=== PATIENT | male | born 1995 | race Caucasian/White ===

== ENCOUNTER 2022-07-17 11:56 | Emergency (ER) | payer OTHER ==
[2022-07-17] MEDS ORDERED: IBUP80TA PO (14:08)
[2022-07-17] MEDS ORDERED: CYCL5TAB PO (14:08)
[2022-07-17 14:19] VITALS: BP 116/59
== END 2022-07-17 14:21 | disposition home or self-care (01) ==
LOC: M ED 11:56
DX: M54.50 Low back pain, unspecified (principal); W19.XXXA Unspecified fall, initial encounter

== ENCOUNTER → 2023-09-08 | Outpatient (CLI) | payer OTHER ==
[~2023-09-08] MED LIST: CYCL5TAB PO; IBUP80TA PO
== END ==
LOC: M RAD 10:07
PROVIDERS: ATTEND Pain Medicine Interventional Pain Medicine
DX: M54.12 Radiculopathy, cervical region (principal)

== ENCOUNTER → 2023-09-13 | Outpatient (CLI) | payer OTHER ==
[~2023-09-13] MED LIST changes: +ISOVUE-300 61% 100ML VIAL As Ordered ONE; +LIDOCAINE 1% MDV 20ML VIAL As Ordered ONE; +PROHANCE 279.3MG/ML 5ML VIAL As Ordered ONE
== END ==
LOC: M RAD 06:21
PROVIDERS: ATTEND Physician Assistant
DX: S43.401A Unspecified sprain of right shoulder joint, initial encounter (principal); M25.511 Pain in right shoulder; X58.XXXA Exposure to other specified factors, initial encounter; Y92.9 Unspecified place or not applicable
CPT/HCPCS: 23350; 73223; 77002; A9576; Q9967